=== PATIENT | male | born 1950 | race Caucasian/White ===

== ENCOUNTER → 2018-10-09 | Outpatient (CLI) | payer OTHER ==
[~2018-10-09] MED LIST: IOPAMIDOL 370 MG/ML 200 ML INFUS..BTL INJ ONE; SODIUM CHLORIDE 0.9% 50ML 50 ML ONE
[2018-10-09 10:30] LABS: BLOOD UREA NITROGEN 13 mg/dL (7-26); BUN/CREATININE RATIO 17 (6-25); CREATININE, SERUM 0.75 mg/dL (0.72-1.25); EST GLOMERULAR FILTRATION RATE > 60 ML/MIN (60-)
--- NOTE | 2018-10-09 12:00 | Diagnostic Imaging Report ---
EXAM: CT Chest with contrast INDICATION: COPD, weight loss, shortness of breath. COMPARISON: None TECHNIQUE: Chest was scanned utilizing a multidetector helical scanner from the lung apex through the level of the adrenal glands without administration of IV contrast. Coronal and sagittal reformations were obtained. Routine protocol was performed. IV CONTRAST: 100 mL of Isovue 370. RADIATION DOSE: Total DLP: 383.3 mGy*cm Dose modulation, iterative reconstruction, and/or weight based adjustment of the mA/kV was utilized to reduce the radiation dose to as low as reasonably achievable. COMPLICATIONS: None FINDINGS: LINES/ TUBES: None. LUNGS AND AIRWAYS: The lungs are hyperinflated. There are mild centrilobular emphysematous changes of the lungs. There is diffuse mild bronchial wall thickening. No evidence of suspicious pulmonary nodule. Tiny 2 mm calcified granuloma in the right lower lobe on series 3, image 53. PLEURA: The pleural spaces are clear. HEART AND MEDIASTINUM: The thyroid gland is normal. No mediastinal, hilar or axillary lymphadenopathy. No cardiomegaly or pericardial effusion. Scattered atherosclerotic calcifications of the aorta, branch vessels, and coronary vessels. Mild focal stenoses at the proximal brachiocephalic artery and left subclavian artery. UPPER ABDOMEN: Limited contrast-enhanced views of the upper abdomen are unremarkable. BONES: No acute osseous abnormality. No suspicious lytic or blastic lesions. Mild degenerative changes. SOFT TISSUES: Unremarkable. IMPRESSION: Mild emphysematous changes of the lungs. No suspicious pulmonary nodule. Diffuse mild bronchial wall thickening which may represent bronchitis. Signed by: Dr. Anup Matthew MD on 10/09/2018 11:57 AM
== END ==
LOC: CT 09:12
PROVIDERS: ATTEND Internal Medicine Critical Care Medicine
DX: R06.00 Dyspnea, unspecified (principal); R63.4 Abnormal weight loss
CPT/HCPCS: 36415; 71260; 82565; 84520; Q9967